=== PATIENT | male | born 1985 | race Caucasian/White ===

== ENCOUNTER 2016-11-04 16:14 | Emergency (ER) | payer OTHER ==
[2016-11-04 16:30] VITALS: BP 129/94; PULSE 97; TEMP 98.4; BMI 21.6
[2016-11-04] MEDS ORDERED: ONDANSETRON *ODT* 4 MG TABLET SL ONE (19:37)
[2016-11-04] MEDS ORDERED: MAG HYDROX/AL HYDROX/SIMETH 355 ML ORAL.SUSP PO ONE (19:38)
[2016-11-04] MEDS ORDERED: MAG HYDROX/AL HYDROX/SIMETH 30 ML UNIT-DOSE CUP ONE (19:40)
[2016-11-04] MEDS ORDERED: ONDANSETRON *ODT* 4 MG TABLET ONE (19:41)
--- NOTE | 2016-11-04 19:41 | PDOC ---
History of Present Illness - General Chief Complaint: Pain, Acute Stated Complaint: STOMACH PAIN Time Seen by Provider: 11/04/16 19:29 History Source: Patient Exam Limitations: No Limitations - History of Present Illness Initial Comments: 11/04/16 19:39 30 yr male with history of anxiety, polysubstance abuse states he has not smoke crystal meth in 3 days and now has stomach pains. Pt has taken his suboxone and last xanax was 4 days ago. Pt has apt friday with his pain management doctor. Pt denies vomiting or diarrhea no fever . Past History - Past Medical History Allergies/Adverse Reactions: Allergies Allergy/AdvReac Type Severity Reaction Status Date / Time No Known Allergies Allergy Verified 11/04/16 16:26 Home Medications: Ambulatory Orders Alprazolam [Xanax -] 2 mg PO TID 08/16/14 Buprenorphine HCl/Naloxone HCl [Suboxone 12 mg-3 mg Sl Film] 1 each SL DAILY 08/24 Hydroxyzine Pamoate [Vistaril -] 25 mg PO Q6H #20 capsule 11/04/16 Psychiatric Problems: Yes (anxiety) - Immunization History Immunization Up to Date: Yes - Suicide/Smoking/Psychosocial Hx Smoking Status: Yes Smoking History: Current every day smoker Have you smoked in the past 12 months: Yes Number of Cigarettes Smoked Daily: 10 Information on smoking cessation initiated: No Hx Alcohol Use: No Drug/Substance Use Hx: Yes Substance Use Type: Opiates *Physical Exam - Vital Signs Last Vital Signs Temp Pulse Resp BP Pulse Ox 98.4 F 97 H 20 129/94 98 11/04/16 16:26 11/04/16 16:26 11/04/16 16:26 11/04/16 16:26 11/04/16 16:26 - Physical Exam General Appearance: Yes: Nourished, Appropriately Dressed HEENT: positive: EOMI, ASHLEY, Normal ENT Inspection, TMs Normal, Pharynx Normal, Other (moist membranes ) Neck: positive: Supple Respiratory/Chest: positive: Lungs Clear, Normal Breath Sounds. negative: Chest Tender Cardiovascular: positive: Regular Rhythm, Regular Rate Gastrointestinal/Abdominal: positive: Normal Bowel Sounds, Soft. negative: Tender, Guarding, Rebound, Tenderness Musculoskeletal: positive: Normal Inspection Extremity: positive: Normal Capillary Refill, Normal Inspection, Normal Range of Motion Integumentary: positive: Normal Color, Dry, Warm Neurologic: positive: Fully Oriented, Alert, Normal Mood/Affect, Normal Response , Motor Strength 06/14 Medical Decision Making - Medical Decision Making 11/04/16 20:03 cc: stomach pain after stopping meth 3 days ago pt also feeling anxious last dose of xanax was 4 days ago pt is having no vomiting or diarrhea is in no acute distress, sitting comfortable on the stretcher will give zofran and maalox pt agrees with plan, states he has appointment tomorrow with his pain management doctor pt is stable no signs of withdrawl 11/04/16 20:3 *DC/Admit/Observation/Transfer Diagnosis at time of Disposition: Stomach pain - Discharge Dispostion Disposition: HOME Condition at time of disposition: Good - Prescriptions Prescriptions: Hydroxyzine Pamoate [Vistaril -] 25 mg PO Q6H #20 capsule - Referrals Referrals: Mario Mejía MD [Primary Care Provider] - - Patient Instructions Additional Instructions: drink pleanty of fluids get pleanty of rest and eat a well balanced diet take hydroxyzine as directed for anxiety and to help sleep follow with your doctor tomorrow and friday as planned take maalox or Tums over the counter for stomach upset Return if worse
== END 2016-11-04 20:36 | disposition home or self-care (01) ==
LOC: JERFT 16:14
DX: R10.84 Generalized abdominal pain (principal); F15.10 Other stimulant abuse, uncomplicated; F41.9 Anxiety disorder, unspecified
CPT/HCPCS: 99281-25